=== PATIENT | female | born 1960 | race Asian ===

== ENCOUNTER 2018-02-21 17:20 | Emergency (ER) | payer OTHER ==
[2018-02-21 17:39] VITALS: BP 104/49; PULSE 75; TEMP 98.9
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
== END 2018-02-21 20:18 | disposition home or self-care (01) ==
LOC: JERFT 17:20
DX: S09.8XXA Other specified injuries of head, initial encounter (principal); S30.0XXA Contusion of lower back and pelvis, initial encounter; S76.001A Unspecified injury of muscle, fascia and tendon of right hip, initial encounter; Y04.2XXA Assault by strike against or bumped into by another person, initial encounter; Y93.89 Activity, other specified; Y92.010 Kitchen of single-family (private) house as the place of occurrence of the external cause; Y99.8 Other external cause status; Y07.499 Other family member, perpetrator of maltreatment and neglect; I10 Essential (primary) hypertension; E11.9 Type 2 diabetes mellitus without complications; Z79.4 Long term (current) use of insulin; E78.00 Pure hypercholesterolemia, unspecified; E03.9 Hypothyroidism, unspecified
CPT/HCPCS: 70450-TC; 72100-TC-FY; 73030-TC-RT-FY; 73523-TC-FY; 99281-25